=== PATIENT | male | born 1975 | race Caucasian/White ===

== ENCOUNTER 2021-11-12 14:30 | Observation (INO) | payer BC, SELFPAY ==
--- NOTE | ~2021-11-12 | US_ITS ---
EXAMINATION: US scrotum doppler DATE: 11/12/2021 15:46 INDICATION: Right testicular pain and swelling TECHNIQUE: Grayscale and Doppler ultrasound images of the testes were obtained. COMPARISON: None. FINDINGS: The right testis measures 6 x 3.9 x 3.7. The left testis measures 6.2 x 3.7 x 3.3. There is normal vascular flow to both testes. The right epididymis contains cysts and some calcifications. Th e left epididymis contains cysts. Large right and small left hydroceles. Small left varicocele. IMPRESSION: 1. No sonographic evidence of torsion. 2. Large right and small left hydroceles. 3. Small left varicocele. Reviewed, dictated and finalized at location K.
[2021-11-12 14:32] VITALS: BP 162/92; PULSE 106; RESP 18; TEMP 36.6; O2SAT 98
[2021-11-12 16:28] VITALS: BP 134/86; PULSE 95; RESP 18; O2SAT 97
--- NOTE | 2021-11-12 17:26 | ED.MALEGU ---
HPI - Male Genitourinary General Chief complaint: Urogenital-Male Stated complaint: groin swelling Time Seen by Provider: 11/12/21 14:38 Source: patient and family Mode of arrival: ambulatory Limitations: no limitations History of Present Illness HPI Narrative: Patient is 46 years old white male presents with pain, swelling and redness of the scrotum the pain mainly on the right side started 3 days ago, getting worse. He denies any fever, chills, nausea, vomiting, trauma or trouble urinating. History of hypertension, hyper anemia. Patient does not smoke or drink or uses drugs. Related Data Home Medications Medication Instructions Recorded Confirmed amlodipine 11/12/21 atorvastatin 11/12/21 losartan 11/12/21 omeprazole 11/12/21 11/12/21 Allergies Allergy/AdvReac Type Severity Reaction Status Date / Time No Known Allergies Allergy Verified 11/12/21 14:30 Review of Systems Review of Systems: All systems reviewed & are unremarkable except as noted in HPI and below Exam Narrative: General appearance: Well-developed, well-nourished Skin: Normal color Head: Normocephalic, nontraumatic Eyes: Clear conjunctiva ENT: Oropharynx normal, ears normal, nose normal Neck: Supple, nontender Chest and respiratory: Airway patent, no respiratory distress, no accessory muscle use Heart: Regular rate/rhythm Abdomen: Soft, nontender, no organomegaly, quiet bowel sounds Vascular: Normal peripheral pulses, normal capillary refill. 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 IV vancomycin started, patient admission to hospitalist, urology consult. Consultations Consultation #1: DR GONZALES Date: 11/12/21 Time: 17:37 Vital Signs Vital signs: Vital Signs Temperature 36.6 C 11/12/21 14:32 Pulse Rate 106 H 11/12/21 14:32 Respiratory Rate 18 11/12/21 14:32 Blood Pressure 162/92 H 11/12/21 14:32 Pulse Oximetry 98 11/12/21 14:32 Temperature 36.6 C 11/12/21 14:32 Pulse Rate 95 11/12/21 16:28 Respiratory Rate 18 11/12/21 16:28 Blood Pressure 134/86 11/12/21 16:28 Pulse Oximetry 97 11/12/21 16:28 MDM - Male Genitourinary Differential Diagnosis Differential diagnosis: Likely epididymitis and other (Hydrocele, varicocele, cellulitis) Lab Data Labs: Lab Results 11/12/21 Range/Units 17:08 Urine Color Pending Urine Appearance Pending Urine pH Pending Ur Specific [place] Pending Urine Protein Pending Urine Glucose (UA) Pending Urine Ketones Pending Ur Blood (Man) Pending Urine Nitrate Pending Urine Bilirubin Pending Urine Urobilinogen Pending Leukocyte Esterase Rfl Pending Urine Characteristics Clear Critical Care Time Critical Care Time Critical Care Time: Yes Total Critical Care Time: 30 Discharge Plan Discharge Clinical Impression: Cellulitis of scrotum, Right hydrocele Patient Disposition: Still a Patient Condition: Stable Prescriptions: No Action atorvastatin 10 mg tablet RF: 0 amlodipine 10 mg tablet RF: 0 omeprazole 20 mg capsule,delayed release(DR/EC) RF: 0 losartan 100 mg tabl
[2021-11-12 17:30] LABS: Appearance Urine Slightly Cloudy (Clear); Bilirubin Urine 1+ (Negative); Blood Urine Trace-lysed (Negative); Color Urine Amber (Yellow); Glucose Urine UA Negative (Negative); Ketones Urine Trace mg/dL (Negative); Leukocyte Esterase Ur Negative LEU/UL (Negative); Nitrate Urine Negative (Negative); Protein Urine 2+ mg/dL (Negative); Specific Grav Ur 1.025 (1.001-1.035)
[2021-11-12 17:38] LABS: Add Urine Microscopic? YES; Amorphous Sediment Urine Few; Mucus Urine Few /lpf; Squamous Epithelial Cell Urine Rare /hpf (Few); WBC Urine 0-3 /hpf
[2021-11-12 17:53] LABS: Basophils Absolute Auto 0.1 K/mm3 (0.0-0.1); Basophils Percent Auto 0.7 % (0.2-1.2); Eosinophils Absolute Auto 0.3 K/mm3 (0-0.3); Eosinophils Percent Auto 1.5 % (0-4.4); Hematocrit 49.8 % (42.0-52.0); Immature Granulocyte Absolute 0.06 K/mm3 (0.00-0.031); Immature Granulocyte Percent A 0.4 % (0-0.5); Lymphocytes Absolute Auto 3.13 K/mm3 (0.9-3.2); Lymphocytes Percent Auto 18.9 % (18.3-44.2); Mean Corpuscular HGB Conc 34.1 g/dl (32-36); Mean Corpuscular Hemoglobin 31.2 pg (26-34); Mean Corpuscular Volume 91.4 fl (80-100); Mean Platelet Volume 10.4 fl (7.4-10.4); Monocytes Percent Auto 6.1 % (2.6-8.5); Neutrophils Percent Auto 72.4 % (45.5-73.1); Platelet Count Result 303 k/mm3 (150-375); Red Blood Count 5.45 M/mm3 (4.6-6.20); White Blood Count 16.6 K/mm3 (4.5-10.0)
[2021-11-12 18:05] VITALS: BP 132/87; PULSE 90; RESP 118; O2SAT 98
[2021-11-12 18:19] LABS: Alanine Aminotransferase 34 U/L (4-50); Albumin Level 4.7 g/dL (3.5-5.1); Alkaline Phosphatase 72 U/L (38-126); Anion Gap 6 mmol/L (8-16); Aspartate Amino Transferase 34 U/L (17-59); Bilirubin,Total 1.1 mg/dL (0.2-1.3); Blood Urea Nitrogen 17 mg/dL (9-20); Calcium 9.3 mg/dL (8.4-10.2); Carbon Dioxide 30 mmol/L (22-30); Chloride 102 mmol/L (98-107); Estimated CRCL calculation 117 ml/min; Estimated Glomerular Filt Rate > 60; Glucose 93 mg/dL (65-110); Potassium 4.5 mmol/L (3.4-5.0); Sodium 138 mmol/L (137-145)
[2021-11-12 19:23] VITALS: BP 133/86; PULSE 78; RESP 16; O2SAT 100
[2021-11-12 19:47] VITALS: BMI 39.5
[2021-11-12 19:48] VITALS: BP 131/73; PULSE 77; RESP 18; TEMP 36.6; O2SAT 98
--- NOTE | 2021-11-12 19:48 | ADMGEN ---
This patient, Suresh Travis, was admitted to Medical Room 340-01. Patient/family oriented to hospital policies and general routines including ID bracelet, bed and alarms, visiting hours, pain management, procedures, bathroom and other care routines, personal items, smoking policy, room service/diet, and visiting hours. Information on how to activate the Rapid Response Team has been discussed. Patient/Family are encouraged to report perceived risks to care and to ask questions if they do not understand what they are told or what they should do.
--- NOTE | 2021-11-12 22:00 | PM.IMHP ---
H&P: HPI History of Present Illness Date/Time: 11/12/21 22:00 Chief Complaint: Swelling and pain to right testicle. Narrative: This is a pleasant 46-year-old male smoker with hypertension, hyperlipidemia, and sleep apnea who presented to the emergency department for evaluation of swelling and pain to the right testicle. He reports a gradual onset of scrotal swelling, discomfort, and redness over the past 2 to 3 days. Scrotal ultrasound showed no evidence of torsion, large right and small left hydroceles, and a small left varicocele. Exam demonstrated mild swelling and erythema of the right scrotum and he is being admitted in this setting for IV antibiotics. He has never had similar symptoms. He has not noticed any ingrown hairs or wounds. He also denies fever, chills, sweats, nausea, and vomiting. Review of Systems Review of Systems: Twelve systems were reviewed and are negative except for as per HPI. [facility] Past Medical History Medical History Gastroesophageal reflux disease Gout Hyperlipidemia Hypertension Obstructive sleep apnea Psoriasis Family History Family History Mother Cerebrovascular accident Epilepsy Father Heart disease Sibling Heart disease Social History Social History (Updated 11/12/21 @ 23:09 by Val Bethea PA-C) Social History: Surrogate decision maker: Vicki Travis, spouse. Code status: Full code. 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 Spiritual care concerns: No Meds Home Medications and Allergies Home Medications Medication Instructions Recorded Confirmed Type amlodipine 10 mg PO QAM 11/12/21 11/12/21 History atorvastatin 10 mg PO QAM 11/12/21 11/12/21 History ibuprofen 600 mg PO Q6H PRN 11/12/21 11/12/21 History losartan 100 mg PO QAM 11/12/21 11/12/21 History omeprazole 20 mg PO PRN PRN 11/12/21 11/12/21 History Allergies Allergy/AdvReac Type Severity Reaction Status Date / Time tree and shrub pollen Allergy Mild Congested Verified 11/12/21 20:40 Vital Signs Vital Signs - 24 hr 11/12/21 14:32 11/12/21 16:28 11/12/21 18:05 Temperature 97.9 F Pulse Rate 106 H 95 90 Respiratory Rate 18 18 118 H Blood Pressure 162/92 H 134/86 132/87 Pulse Oximetry 98 97 98 11/12/21 19:23 11/12/21 19:48 Temperature 97.9 F Pulse Rate 78 77 Respiratory Rate 16 18 Blood Pressure 133/86 131/73 Pulse Oximetry 100 98 Exam Narrative: General: Well-developed male supine in bed. Weight: 36 kg. BMI: 39.6. HEENT: PERRL, EOMI. Sclerae anicteric. Oral mucosa moist. Neck: Supple. Full gordon. Respiratory: Lungs are clear to auscultation bilaterally. Cardiovascular: Regular rate and rhythm with S1-S2. Gastrointestinal: Abdomen is soft, protuberant, nontender, and nondistended with positive bowel sounds. Genitourinary: Mild edema and erythema particularly on the right side of the scrotum. Skin: Warm and dry. No rash or lesions on limited exam. Extremities: No cyanosis, clubbing, or edema. Radial and pedal pulses intact. Neurological: Alert. Cranial nerves 2-12 are grossly intact. No gross focal deficits to casual conversation. Psychiatric: Pleasant and cooperative with normal mood and affect. H&P: Results Labs Labs: Short CBC 11/12/21 Range/Units 17:30 WBC 16.6 H (4.5-10.0) K/mm3 Hgb 17.0 (14.0-18.0) g/dL Hct 49.8 (42.0-52.0) % Plt Count 303 (150-375) k/mm3 BMP 11/12/21 17:30 Sodium 138 Potassium 4.5 Chloride 102 Carbon Dioxide 30 BUN 17 Creatinine 1.00 Glucose 93 Calcium 9.3 Liver Function 11/12/21 Range/Units 17:30 Total Bilirubin 1.1 (0.2-1.3) mg/dL AST 34 (
--- NOTE | 2021-11-12 22:16 | WPDURCON ---
Assessment and Plan Assessment and plan (1) Cellulitis of scrotum: Code(s): N49.2 - Inflammatory disorders of scrotum Status: Acute Assessment and Plan: Mild-moderate cellulitis of scrotum. Vanomycin x1 followed by Ancef. Home on oral abx. when showing sings of clinical improvement. Urology Consult Note HPI Date Seen: 11/12/21 Requesting Physician: Yvette Vora MD Primary Care Provider: Nehemiah Nur, MD Consult Narrative Narrative: Suresh Travis is a 46 year old male, without significant history, presents to the ER the 48 hour history of scrotal swelling and erythema. This occurred without a identifiable precipitating injury or strain in his not been associated with fevers chills arthralgias or other constitutional symptoms. Additionally, he denies irritable voiding symptoms or hematuria. Review of Systems Cardiovascular: Cardiovascular: Denies chest pain, Denies lightheadedness, Denies palpitations and Denies dyspnea Respiratory: Respiratory: Denies dyspnea Gastrointestinal: Gastrointestinal: Denies diarrhea, Denies nausea and Denies vomiting Genitourinary: Genitourinary: Denies hematuria and Denies dysuria Endocrine: Endocrine: Denies palpitations PMFSH Past Medical History Medical History Gastroesophageal reflux disease Gout Hyperlipidemia Hypertension Obstructive sleep apnea Psoriasis Family History Family History Mother Cerebrovascular accident Epilepsy Father Heart disease Sibling Heart disease Social History Social History Social History: Surrogate decision maker: Vicki Travis, spouse. Code status: Full code. Smoking packs per day: 1 Smoking cigarettes per day: 20.0 Smoking status: Current every day smoker Tobacco type: cigarettes Alcohol intake: current Drinks per week: 1 Substance use: never Spiritual care concerns: No Meds Home Medications and Allergies Home Medications Medication Instructions Recorded Confirmed Type amlodipine 10 mg PO QAM 11/12/21 11/12/21 History atorvastatin 10 mg PO QAM 11/12/21 11/12/21 History ibuprofen 600 mg PO Q6H PRN 11/12/21 11/12/21 History losartan 100 mg PO QAM 11/12/21 11/12/21 History omeprazole 20 mg PO PRN PRN 11/12/21 11/12/21 History Allergies Allergy/AdvReac Type Severity Reaction Status Date / Time tree and shrub pollen Allergy Mild Congested Verified 11/12/21 20:40 Vital Signs Vital Signs - 24 hr 11/12/21 14:32 11/12/21 16:28 11/12/21 18:05 Temperature 97.9 F Pulse Rate 106 H 95 90 Respiratory Rate 18 18 118 H Blood Pressure 162/92 H 134/86 132/87 Pulse Oximetry 98 97 98 11/12/21 19:23 11/12/21 19:48 Temperature 97.9 F Pulse Rate 78 77 Respiratory Rate 16 18 Blood Pressure 133/86 131/73 Pulse Oximetry 100 98 Exam Const: General: no acute distress Resp: Effort & Inspection: normal respiratory effort GI: Inspection: non-distended GI Palp: No abdominal tenderness and No Guarding due to palpation present (GI) Auscultation: normal bowel sounds : Male General Exam: Yes edema (mild) and Yes erythema Results Labs CBC & Chem 7: 11/12/21 17:30 11/12/21 17:30 Labs: Short CBC 11/12/21 Range/Units 17:30 WBC 16.6 H (4.5-10.0) K/mm3 Hgb 17.0 (14.0-18.0) g/dL Hct 49.8 (42.0-52.0) % Plt Count 303 (150-375) k/mm3 BMP 11/12/21 17:30 Sodium 138 Potassium 4.5 Chloride 102 Carbon Dioxide 30 BUN 17 Creatinine 1.00 Glucose 93 Calcium 9.3 Liver Function 11/12/21 Range/Units 17:30 Total Bilirubin 1.1 (0.2-1.3) mg/dL AST 34 (17-59) U/L ALT 34 (4-50) U/L Alkaline Phosphatase 72 (38-126) U/L Albumin 4.7 (3.5-5.1) g/dL Urine 11/12/21 Range/Units 17:08 Urine Color [place] (
[2021-11-13] MEDS: WATER FOR IRRIGATION, STERILE 1,000 ML BOTTLE 1000 ML (00:25)
[2021-11-13 04:12] VITALS: BP 136/70; PULSE 73; RESP 14; TEMP 36.8; O2SAT 98
[2021-11-13 07:12] LABS: Hematocrit 50.5 % (42.0-52.0); Hemoglobin 16.5 g/dL (14.0-18.0); Mean Corpuscular HGB Conc 32.7 g/dl (32-36); Mean Corpuscular Volume 94.9 fl (80-100); Mean Platelet Volume 10.2 fl (7.4-10.4); Platelet Count Result 270 k/mm3 (150-375); Red Blood Count 5.32 M/mm3 (4.6-6.20); Red Cell Distribution Width 13.2 % (11.5-14.5); White Blood Count 12.7 K/mm3 (4.5-10.0)
[2021-11-13 07:27] LABS: Anion Gap 2 mmol/L (8-16); Blood Urea Nitrogen 16 mg/dL (9-20); Calcium 9.2 mg/dL (8.4-10.2); Carbon Dioxide 32 mmol/L (22-30); Chloride 103 mmol/L (98-107); Estimated CRCL calculation 117 ml/min; Estimated Glomerular Filt Rate > 60; Glucose 96 mg/dL (65-110); Magnesium 2.2 mg/dL (1.6-2.3); Potassium 4.3 mmol/L (3.4-5.0); Sodium 137 mmol/L (137-145)
--- NOTE | 2021-11-13 08:02 | WPDUROPN2 ---
Progress Note: A&P Assessment and Plan (1) Cellulitis of scrotum: Code(s): N49.2 - Inflammatory disorders of scrotum Status: Acute Assessment and Plan: Overall, much improved this morning - pt. more comfortable, scrotal erythema notably better and serum WBC diminished. I'm comfortable with discharge on Keflex x2 weeks. F/U with us 2-3 weeks. Subjective Subjective Date/Time Seen: 11/13/21 08:02 Comfortable, no complaints Review of Systems Cardiovascular: Cardiovascular: Denies chest pain, Denies lightheadedness, Denies palpitations and Denies dyspnea Respiratory: Respiratory: Denies dyspnea Gastrointestinal: Gastrointestinal: Denies diarrhea, Denies nausea and Denies vomiting Genitourinary: Genitourinary: Denies hematuria and Denies dysuria Endocrine: Endocrine: Denies palpitations Exam Const: General: no acute distress Resp: Effort & Inspection: normal respiratory effort GI: Inspection: non-distended GI Palp: No abdominal tenderness and No Guarding due to palpation present (GI) Auscultation: normal bowel sounds : Penis: Yes erythematous (mild) Objective Data Vital Signs Vital Signs: Vital Signs - 24 hr 11/12/21 14:32 11/12/21 16:28 11/12/21 18:05 Temperature 97.9 F Pulse Rate 106 H 95 90 Respiratory Rate 18 18 118 H Blood Pressure 162/92 H 134/86 132/87 Pulse Oximetry 98 97 98 11/12/21 19:23 11/12/21 19:48 11/13/21 04:12 Temperature 97.9 F 98.2 F Pulse Rate 78 77 73 Respiratory Rate 16 18 14 Blood Pressure 133/86 131/73 136/70 Pulse Oximetry 100 98 98 Intake/Output Intake/Output: Intake & Output 11/10/21 11/11/21 11/12/21 11/13/21 23:59 23:59 23:59 23:59 Intake Total 500 100 Balance 500 100 Meds/Results Medications: Active Medications Generic Name Dose Route Start Last Admin Trade Name Freq PRN Reason Stop Dose Admin Acetaminophen 650 mg 11/12/21 18:41 Acetaminophen 325 Mg Tablet PO Q4H PRN Mild Pain (1-3) or Fever Amlodipine Besylate 10 mg 11/13/21 09:00 Amlodipine Besylate 5 Mg Tablet PO [facility] Atorvastatin Calcium 10 mg 11/13/21 09:00 Atorvastatin 10 Mg Tablet PO QAM [facility] Cefazolin Sodium 1 gm in 50 mls @ 100 mls/hr 11/13/21 00:00 11/13/21 01:00 Ancef 1 Gm/D5w 50 Ml Pm IVPB Infused Q8H [facility] Infusion Losartan Potassium 100 mg 11/13/21 09:00 Losartan Potassium 100 Mg Tablet PO QAM [facility] Pantoprazole Sodium 40 mg 11/12/21 23:23 Pantoprazole 40 Mg Tablet PO QAM PRN Acid Reflux Radiology Results: ITS Impressions Scrotum Ultrasound 11/12/21 16:08 IMPRESSION: 1. No sonographic evidence of torsion. 2. Large right and small left hydroceles. 3. Small left varicocele. Labs Labs: Laboratory Results - last 24 hr 11/12/21 11/12/21 11/12/21 17:08 17:30 17:30 WBC 16.6 H RBC 5.45 Hgb 17.0 Hct 49.8 MCV 91.4 MCH 31.2 MCHC 34.1 RDW 13.0 Plt Count 303 MPV 10.4 Immature Gran % (Auto) 0.4 Neut % (Auto) 72.4 Lymph % (Auto) 18.9 [place] % (Auto) 6.1 Eos % (Auto) 1.5 Baso % (Auto) 0.7 Lymph # (Auto) 3.13 [place] # (Auto) 1.0 H Eos # (Auto) 0.3 Baso # (Auto) 0.1 Abs Immat Gran (auto) 0.06 H Absolute Neuts (auto) 12.0 H Absolute Nucleated RBC 0.0 Nucleated RBC % 0.0 Sodium 138 Potassium 4.5 Chloride 102 Carbon Dioxide 30 Anion Gap 6 L BUN 17 Creatinine 1.00 Estim Creat Clear Calc 117 Estimated GFR > 60 Glucose 93 Calcium 9.3 Magnesium Total Bilirubin 1.1 AST 34 ALT 34 Alkaline Phosphatase 72 C-Reactive Protein Total Protein 8.0 Albumin 4.7 Urine Color [place] Urine Appearance Slightly cloudy Urine pH 6.0 Ur Specific [place] 1.025 Urine Protein 2+ H Urine Glucose (UA) Negative Urine Ketones Trace Ur Blood (Man) Trace-lysed Urine Nitrate Negative Urine Bilirubin 1+ H Urine U
[2021-11-13] MEDS: amLODIPine BESYLATE 5 MG TABLET 10 MG PO (09:35)
[2021-11-13] MEDS: LOSARTAN POTASSIUM 100 MG TABLET PO (09:36)
[2021-11-13] MEDS: ATORVASTATIN 10 MG TABLET PO (09:36)
--- NOTE | 2021-11-13 10:11 | PM.DS ---
DS: Admitting Diagnosis Discharge Date 11/13/2021 Admitting Diagnosis Scrotal redness DS: Discharge Diagnosis Discharge Diagnosis (1) Cellulitis of scrotum: Code(s): N49.2 - Inflammatory disorders of scrotum Status: Acute Assessment and Plan: Status post IV vancomycin Urology was consulted treated with antibiotics per Dr. Witt, transition to Ancef and monitor for response. Patient will be discharged on Keflex for 2 weeks follow-up with Urology as outpatient (2) Right hydrocele: Code(s): N43.3 - Hydrocele, unspecified Status: Acute Assessment and Plan: Follow-up with urology as outpatient (3) Hypertension: Code(s): I10 - Essential (primary) hypertension Status: Acute Assessment and Plan: Blood pressures were reviewed and they are stable. Continue antihypertensives and monitor. (4) Hyperlipidemia: Code(s): E78.5 - Hyperlipidemia, unspecified Status: Acute Assessment and Plan: Continue atorvastatin (5) Obstructive sleep apnea: Code(s): G47.33 - Obstructive sleep apnea (adult) (pediatric) Status: Acute Assessment and Plan: Continue home treatment DS: Summary Hospital Course Hospital Course: 46 years old male presented to the hospital with scrotal redness swelling and pain was found to have scrotal cellulitis treated with IV antibiotic urology was consulted leukocytosis has improved patient will be discharged on oral antibiotic for 2 weeks and follow up with Urology as outpatient Time Spent with Patient Time attestation: Total time spent providing and/or coordinating discharge services: 25 minutes Exam Narrative: Alert Chest no wheeze crackles Abdomen nontender nondistended CVS S1 + S2 Negative Lower extremity edema Scrotal redness has improved DS: Data Data Completed and Pending Labs on day of discharge: Labs from last 24 hours 11/13/21 11/13/21 11/12/21 06:47 06:47 17:30 WBC 12.7 H RBC 5.32 Hgb 16.5 Hct 50.5 MCV 94.9 MCH 31.0 MCHC 32.7 RDW 13.2 Plt Count 270 MPV 10.2 Immature Gran % (Auto) Neut % (Auto) Lymph % (Auto) [place] % (Auto) Eos % (Auto) Baso % (Auto) Lymph # (Auto) [place] # (Auto) Eos # (Auto) Baso # (Auto) Abs Immat Gran (auto) Absolute Neuts (auto) Absolute Nucleated RBC Nucleated RBC % Sodium 137 138 Potassium 4.3 4.5 Chloride 103 102 Carbon Dioxide 32 H 30 Anion Gap 2 L 6 L BUN 16 17 Creatinine 1.00 1.00 Estim Creat Clear Calc 117 117 Estimated GFR > 60 > 60 Glucose 96 93 Calcium 9.2 9.3 Magnesium 2.2 Total Bilirubin 1.1 AST 34 ALT 34 Alkaline Phosphatase 72 C-Reactive Protein 4.0 H Total Protein 8.0 Albumin 4.7 Urine Color Urine Appearance Urine pH Ur Specific [place] Urine Protein Urine Glucose (UA) Urine Ketones Ur Blood (Man) Urine Nitrate Urine Bilirubin Urine Urobilinogen Leukocyte Esterase Rfl Urine RBC Urine WBC Ur Squamous Epith Cells Amorphous Sediment Urine Mucus 11/12/21 11/12/21 17:30 17:08 WBC 16.6 H RBC 5.45 Hgb 17.0 Hct 49.8 MCV 91.4 MCH 31.2 MCHC 34.1 RDW 13.0 Plt Count 303 MPV 10.4 Immature Gran % (Auto) 0.4 Neut % (Auto) 72.4 Lymph % (Auto) 18.9 [place] % (Auto) 6.1 Eos % (Auto) 1.5 Baso % (Auto) 0.7 Lymph # (Auto) 3.13 [place] # (Auto) 1.0 H Eos # (Auto) 0.3 Baso # (Auto) 0.1 Abs Immat Gran (auto) 0.06 H Absolute Neuts (auto) 12.0 H Absolute Nucleated RBC 0.0 Nucleated RBC % 0.0 Sodium Potassium Chloride Carbon Dioxide Anion Gap BUN Creatinine Estim Creat Clear Calc Estimated GFR Glucose Calcium Magnesium Total Bilirubin AST ALT Alkaline Phosphatase C-Reactive Protein Total Protein Albumin Urine Color [place] Urine Appearance Slightly cloud
== END 2021-11-13 11:49 | disposition home or self-care (01) ==
LOC: ANHED 18:08 → ANH3MED 21:19
PROVIDERS: Urology; Admitting Provider Hospitalist; Emergency Provider Emergency Medicine; PCP Family Medicine; Visit Provider Internal Medicine
DX: N49.2 Inflammatory disorders of scrotum (principal); N43.3 Hydrocele, unspecified; I10 Essential (primary) hypertension; E78.5 Hyperlipidemia, unspecified; G47.30 Sleep apnea, unspecified; K21.9 Gastro-esophageal reflux disease without esophagitis; M10.9 Gout, unspecified; F17.210 Nicotine dependence, cigarettes, uncomplicated
CPT/HCPCS: 36415; 76870; 80048; 80053; 81001; 83735; 85025; 85027; 86140; 93976; 96365; 96366; 96367; 99285; A9270; G0378; J0690; J3370